=== PATIENT | male | born 1995 | race Caucasian/White ===

== ENCOUNTER 2017-10-21 21:59 | Emergency (ER) | payer BC ==
[~2017-10-21] VITALS: Ht 170.2 cm; Wt 72.6 kg
[2017-10-21] MEDS ORDERED: FLEXERIL PO ×2 (23:28→23:29)
== END 2017-10-21 23:37 | disposition home or self-care (01) ==
LOC: ER 21:59
DX: M54.5 Low back pain (principal); R06.2 Wheezing; Z87.891 Personal history of nicotine dependence